=== PATIENT | female | born 2000 | race African-American/Black ===

== ENCOUNTER 2025-03-27 19:03 | Emergency (ER) | payer OTHER, SELFPAY ==
[~2025-03-27] VITALS: Ht 154.9 cm; Wt 67.2 kg
[2025-03-27] MEDS: IBUPROFEN 600 MG TAB PO ONE (21:20)
[2025-03-27 21:35] VITALS: BP 118/81; TEMP 97.8; O2SAT 100
== END 2025-03-27 21:37 | disposition home or self-care (01) ==
LOC: M ED 19:03
DX: S93.401A Sprain of unspecified ligament of right ankle, initial encounter (principal); R22.41 Localized swelling, mass and lump, right lower limb; Y92.019 Unspecified place in single-family (private) house as the place of occurrence of the external cause; Y93.9 Activity, unspecified; Y99.9 Unspecified external cause status; W01.0XXA Fall on same level from slipping, tripping and stumbling without subsequent striking against object, initial encounter